=== PATIENT | female | born 1970 | race Caucasian/White ===

== ENCOUNTER 2018-02-10 07:35 | Day surgery (SDC) | payer OTHER ==
[2018-02-10] MEDS ORDERED: ACETAMINOPHEN 325 MG TABLET (FP) PO ONE (10:00)
[2018-02-10] MEDS ORDERED: DIPHENHYDRAMINE 50 MG in SODIUM CHLORIDE 100 ML IVPB ONE (10:00)
[2018-02-10] MEDS ORDERED: FERRIC CARBOXYMALTOSE 750 MG in SODIUM CHLORIDE 250 ML IVPB ONE (10:30)
[2018-02-10 16:56] VITALS: BP 100/62; PULSE 69; TEMP 98.2
== END 2018-02-10 16:59 | disposition home or self-care (01) ==
LOC: JONCNONCHE 07:35 → JONCCHEMO 07:35 → J7W 14:40 → JONCNONCHE 16:59
PROVIDERS: ATTEND Internal Medicine Hematology & Oncology
PROC: 3E033GC Introduction of Other Therapeutic Substance into Peripheral Vein, Percutaneous Approach (ICD-10-PCS; principal; 2018-02-10)
DX: D50.9 Iron deficiency anemia, unspecified (principal)
CPT/HCPCS: 96365; J1439

== ENCOUNTER 2019-03-14 07:24 | Day surgery (SDC) | payer OTHER ==
[2019-03-14] MEDS ORDERED: FERRIC CARBOXYMALTOSE 750 MG in SODIUM CHLORIDE 250 ML IVPB ONE (10:00)
[2019-03-14 17:35] VITALS: TEMP 98.4
[2019-03-14 17:36] VITALS: BP 104/64; PULSE 84
== END 2019-03-14 17:37 | disposition home or self-care (01) ==
LOC: JONCNONCHE 07:24 → J7W 15:37 → JONCNONCHE 17:37
PROVIDERS: ATTEND Internal Medicine Hematology & Oncology
PROC: 3E033GC Introduction of Other Therapeutic Substance into Peripheral Vein, Percutaneous Approach (ICD-10-PCS; principal; 2019-03-14)
DX: D50.9 Iron deficiency anemia, unspecified (principal)
CPT/HCPCS: 96365; J1439

== ENCOUNTER 2021-04-11 10:48 | Day surgery (SDC) | payer OTHER ==
[2021-04-11] MEDS ORDERED: HYDROCORTISONE SOD SUCCINATE 100 MG/2 ML VIAL IVPB PRN (11:32)
[2021-04-11] MEDS ORDERED: EPINEPHrine 1:1,000 0.3 MG/0.3 ML SYR IM PRN (11:33)
[2021-04-11] MEDS ORDERED: ALBUTEROL SO4 0.083% IH SOL 2.5 MG/3 ML VIAL.NEB. NEB PRN (11:33)
[2021-04-11] MEDS ORDERED: FERRIC CARBOXYMALTOSE 750 MG in SODIUM CHLORIDE 250 ML IVPB ONE (11:45)
[2021-04-11 15:16] VITALS: BP 124/82; PULSE 74; TEMP 98.4
== END 2021-04-11 13:05 | disposition home or self-care (01) ==
LOC: JONCNONCHE 10:48
PROVIDERS: ATTEND Internal Medicine Hematology & Oncology
PROC: 3E033GC Introduction of Other Therapeutic Substance into Peripheral Vein, Percutaneous Approach (ICD-10-PCS; principal; 2021-04-11)
DX: D50.9 Iron deficiency anemia, unspecified (principal)
CPT/HCPCS: 96365; J1439

== ENCOUNTER 2021-04-21 07:41 | Day surgery (SDC) | payer OTHER ==
[2021-04-21] MEDS ORDERED: FERRIC CARBOXYMALTOSE 750 MG in SODIUM CHLORIDE 250 ML IVPB ONE (10:00)
[2021-04-21] MEDS ORDERED: methylPREDNISolone NA SUCC 125 MG/2 ML VIAL IVPB ONE (14:53)
[2021-04-21 17:48] VITALS: TEMP 98.7
[2021-04-21 17:49] VITALS: BP 110/72; PULSE 74
== END 2021-04-21 17:15 | disposition home or self-care (01) ==
LOC: JONCNONCHE 07:41
PROVIDERS: ATTEND Internal Medicine Hematology & Oncology
PROC: 3E033GC Introduction of Other Therapeutic Substance into Peripheral Vein, Percutaneous Approach (ICD-10-PCS; principal; 2021-04-21)
DX: D50.9 Iron deficiency anemia, unspecified (principal)
CPT/HCPCS: 96365; J1439

== ENCOUNTER 2023-03-24 15:18 | Emergency (ER) | payer OTHER ==
[2023-03-24 15:34] VITALS: BP 126/86; PULSE 91; RESP 16; TEMP 98; BMI 30.7
[2023-03-24] MEDS ORDERED: diphenhydrAMINE HCL 25 MG CAPSULE (FP) PO ONE ×2 (16:49→16:55)
[2023-03-24 18:10] LABS: BASO % 1.3 % (0-2.0); EOS % 1.5 % (0-4.5); HEMATOCRIT 32.3 % (32.4-45.2); HEMOGLOBIN 10.2 GM/dL (10.7-15.3); LYMPH % 42.7 % (8-40); MCHC 31.5 g/dl (32.0-36.0); MEAN PLT VOLUME 7.9 fl (7.5-11.1); MONO % 9.7 % (3.8-10.2); NEUT % 44.8 % (42.8-82.8); PLATELET COUNT 394 10^3/uL (134-434); RBC 4.43 M/mm3 (3.60-5.2); RDW 19.6 % (11.6-15.6); WHITE BLOOD COUNT 5.8 K/mm3 (4.0-10.0)
[2023-03-24 18:21] LABS: POTASSIUM 4.7 mmol/L (3.5-5.1)
[2023-03-24 18:23] LABS: CALCIUM 9.2 mg/dL (8.5-10.1)
[2023-03-24 18:27] LABS: CREATININE 0.9 mg/dL (0.55-1.3)
[2023-03-24] MEDS ORDERED: SODIUM CHLORIDE 0.9% 500 ML INFUS.BAG IV ONE (18:27)
== END 2023-03-24 19:55 | disposition home or self-care (01) ==
LOC: JER 15:18
DX: L29.9 Pruritus, unspecified (principal)
CPT/HCPCS: 36415; 80048; 85025; 99284-25

== ENCOUNTER 2023-03-31 11:48 | Day surgery (SDC) | payer OTHER ==
[~2023-03-31 11:48] MED LIST: IRON SUCROSE COMPLEX 200 MG in SODIUM CHLORIDE 100 ML IVPB ONE
[2023-03-31 17:30] VITALS: BP 113/70; PULSE 71; RESP 18; TEMP 98.3
== END 2023-03-31 12:30 | disposition home or self-care (01) ==
LOC: JONCNONCHE 11:48 → J7W 11:49 → JONCNONCHE 12:30
PROVIDERS: ATTEND Internal Medicine Hematology & Oncology
PROC: 3E033GC Introduction of Other Therapeutic Substance into Peripheral Vein, Percutaneous Approach (ICD-10-PCS; principal; 2023-03-31)
DX: D50.9 Iron deficiency anemia, unspecified (principal)
CPT/HCPCS: 96365

== ENCOUNTER 2023-04-07 11:37 | Day surgery (SDC) | payer OTHER ==
[2023-04-07 18:04] VITALS: BP 112/72; PULSE 68; RESP 18; TEMP 98.1
== END 2023-04-07 12:55 | disposition home or self-care (01) ==
LOC: JONCNONCHE 11:37 → J7W 11:37 → JONCNONCHE 12:55
PROVIDERS: ATTEND Internal Medicine Hematology & Oncology
PROC: 3E033GC Introduction of Other Therapeutic Substance into Peripheral Vein, Percutaneous Approach (ICD-10-PCS; principal; 2023-04-07)
DX: D50.9 Iron deficiency anemia, unspecified (principal)
CPT/HCPCS: 96365

== ENCOUNTER 2023-04-14 10:40 | Day surgery (SDC) | payer OTHER ==
[2023-04-14 17:48] VITALS: BP 101/68; PULSE 79; RESP 18; TEMP 98.2
== END 2023-04-14 11:55 | disposition home or self-care (01) ==
LOC: JONCNONCHE 10:40 → J7W 10:40 → JONCNONCHE 11:55
PROVIDERS: ATTEND Internal Medicine Hematology & Oncology
PROC: 3E033GC Introduction of Other Therapeutic Substance into Peripheral Vein, Percutaneous Approach (ICD-10-PCS; principal; 2023-04-14)
DX: D50.9 Iron deficiency anemia, unspecified (principal)
CPT/HCPCS: 96365

== ENCOUNTER 2023-04-28 15:50 | Day surgery (SDC) | payer OTHER ==
[~2023-04-28 15:50] MED LIST changes: -IRON SUCROSE COMPLEX 200 MG in SODIUM CHLORIDE 100 ML IVPB ONE; +IRON SUCROSE INJECTION 200 MG in SODIUM CHLORIDE 100 ML IVPB ONE
[2023-04-28 17:56] VITALS: BP 124/75; PULSE 68; RESP 18; TEMP 98.2
== END 2023-04-28 17:10 | disposition home or self-care (01) ==
LOC: JONCNONCHE 15:50
PROVIDERS: ATTEND Internal Medicine Hematology & Oncology
PROC: 3E033GC Introduction of Other Therapeutic Substance into Peripheral Vein, Percutaneous Approach (ICD-10-PCS; principal; 2023-04-28)
DX: D50.9 Iron deficiency anemia, unspecified (principal)
CPT/HCPCS: 96365; J1756

== ENCOUNTER 2024-06-11 16:54 | Emergency (ER) | payer OTHER ==
[2024-06-11 17:18] VITALS: BMI 32.7
[2024-06-11] MEDS ORDERED: diphenhydrAMINE HCL 25 MG CAPSULE (FP) PO ONE (18:47)
[2024-06-11] MEDS ORDERED: ACETAMINOPHEN 325 MG TABLET (FP) ONE (18:48)
[2024-06-11] MEDS: ACETAMINOPHEN 325 MG TABLET (FP) PO ONE (19:02)
[2024-06-11] MEDS: diphenhydrAMINE HCL 25 MG CAPSULE (FP) PO ONE (19:02)
[2024-06-11 19:15] LABS: EOS % 1.1 % (0-4.5); HEMOGLOBIN 14.1 GM/dL (10.7-15.3); LYMPH % 41.6 % (8-40); MCHC 34.3 g/dl (32.0-36.0); MEAN CELL VOLUME 93.3 fl (80-96); MEAN PLT VOLUME 8.3 fl (7.5-11.1); MONO % 9.1 % (3.8-10.2); NEUT % 47.2 % (42.8-82.8); PLATELET COUNT 292 10^3/uL (134-434); RDW 13.1 % (11.6-15.6)
[2024-06-11 19:23] LABS: INR 1.07 (0.83-1.09); PROTHROMBIN TIME (PATIENT) 12.1 SEC (9.7-13.0)
[2024-06-11 19:35] LABS: POTASSIUM 4.8 mmol/L (3.5-5.1)
[2024-06-11 19:37] LABS: ALBUMIN 3.8 g/dl (3.4-5.0); BLOOD UREA NITROGEN 17.3 mg/dL (7-18); CALCIUM 9.5 mg/dL (8.5-10.1); MAGNESIUM 2.4 mg/dL (1.8-2.4)
[2024-06-11 19:39] LABS: CHOLESTEROL 251 mg/dL (50-200)
[2024-06-11 19:41] LABS: LDL CHOLESTEROL (ONLY SJRH) 174 mg/dL (5-100)
[2024-06-11 19:42] LABS: BILIRUBIN,TOTAL 0.4 mg/dL (0.2-1); HDL CHOLESTEROL 60 mg/dL (40-60); TOT PROT 7.3 g/dl (6.4-8.2)
[2024-06-11 19:44] VITALS: BP 108/77; PULSE 76; RESP 16; TEMP 98
[2024-06-11 20:36] LABS: HIV INTERPRETATION NEGATIVE (NEGATIVE)
== END 2024-06-11 20:09 | disposition home or self-care (01) ==
LOC: JER 16:54
DX: L29.9 Pruritus, unspecified (principal); R07.9 Chest pain, unspecified; R51.9 Headache, unspecified
CPT/HCPCS: 36415; 71046-TC-FY; 80053; 80061; 83735; 84484; 85025; 85610; 86803; 86850; 86900; 86901; 87389; 93005; 93010; 99285-25

== ENCOUNTER 2024-12-18 15:40 | Emergency (ER) | payer OTHER ==
[2024-12-18 15:59] VITALS: BP 123/76; PULSE 68; RESP 19; TEMP 97.7; BMI 34.0
[2024-12-18] MEDS ORDERED: KETOROLAC TROMETHAMINE 30 MG/1 ML VIAL ONE (16:28)
[2024-12-18] MEDS ORDERED: LIDOCAINE 5% TOPICAL PATCH ONE (16:30)
[2024-12-18] MEDS: KETOROLAC TROMETHAMINE 30 MG/1 ML VIAL IM ONE (16:40)
[2024-12-18] MEDS: LIDOCAINE 5% TOPICAL PATCH TP ONE (16:40)
[2024-12-18] MEDS ORDERED: LIDOCAINE PATCH REMOVAL MC SCH (22:00)
== END 2024-12-18 18:23 | disposition home or self-care (01) ==
LOC: JERFT 15:40
PROC: 3E0233Z Introduction of Anti-inflammatory into Muscle, Percutaneous Approach (ICD-10-PCS; principal; 2024-12-18)
DX: M54.50 Low back pain, unspecified (principal); M25.561 Pain in right knee; M25.461 Effusion, right knee
CPT/HCPCS: 73562-TC-RT-FY; 96372; 99284-25

== ENCOUNTER 2025-06-26 13:08 | Emergency (ER) | payer OTHER ==
[2025-06-26 13:12] VITALS: BP 111/70; PULSE 73; RESP 18; TEMP 98.2; BMI 31.1
[2025-06-26] MEDS ORDERED: IBUPROFEN 600 MG TABLET (FP) PO ONE (14:19)
[2025-06-26] MEDS: IBUPROFEN 600 MG TABLET (FP) PO ONE (14:24)
== END 2025-06-26 15:35 | disposition home or self-care (01) ==
LOC: JERFT 13:08
DX: M79.671 Pain in right foot (principal)
CPT/HCPCS: 73630-TC-RT-FY; 99283-25